=== PATIENT | female | born 1995 | race African-American/Black ===

== ENCOUNTER 2023-03-28 19:18 | Inpatient (IN) | payer MEDICAID, OTHER ==
[~2023-03-28] VITALS: Ht 153.5 cm; Wt 66.0 kg
[2023-03-28] MEDS ORDERED: METHYLPREDNISOLONE SOD SUCC 125 MG/2 ML VIAL IV STA (19:21)
[2023-03-28] MEDS ORDERED: IPRATROPIUM BROMIDE (0.02%) 0.5MG/2.5ML NEB HHN STA (19:21)
[2023-03-28] MEDS ORDERED: ALBUTEROL (0.083%) 2.5MG/3ML NEB HHN STA (19:21)
[2023-03-28 20:33] LABS: BASOPHILS % 0.6 % (0.0-2.0); CHLORIDE 104 mEq/L (98-107); EOSINOPHILS % 0.8 % (0.0-5.0); HEMATOCRIT. 30.5 % (36.0-48.0); HEMOGLOBIN. 9.8 g/dL (12.0-16.0); LYMPHOCYTES % 17.2 % (20.0-50.0); MEAN CORPUSCULAR HEMOGLOBIN 27.4 pg (28.0-32.0); MEAN CORPUSCULAR VOLUME 85.1 fL (81.0-99.0); MEAN PLATELET VOLUME 8.7 fl (7.4-10.4); MONOCYTES % 4.4 % (2.0-8.0); PLATELET 339 x1000/uL (130-400); RED BLOOD CELL COUNT 3.59 mill/uL (4.2-5.4); RED CELL DISTRIBUTION WIDTH 13.8 % (11.6-14.6)
[2023-03-28 20:41] LABS: ETHANOL BLOOD < 10 mg/dL
[2023-03-28 20:45] LABS: HCG SCREEN NEGATIVE
[2023-03-28] MEDS ORDERED: SODIUM CHLORIDE 0.9% 1,000 ML IV ONE (20:45)
[2023-03-28] MEDS ORDERED: CEFTRIAXONE 2GM/50ML (ADDEASE) 50 ML IV ONE (22:00)
[2023-03-28] MEDS ORDERED: DOXYCYCLINE 100 MG in DEXT 5% WATER 100 ML IV SCH (22:00)
[2023-03-28] MEDS ORDERED: INSULIN REGULAR 100U/100ML PMX 100 ML IV ONE ×2 (22:00→22:15)
[2023-03-28] MEDS ORDERED: CEFTRIAXONE 2 G in DEXTROSE 5% WATER 50 ML IV NR (22:15)
[2023-03-28] MEDS ORDERED: LEVOFLOXACIN 750MG PREMIX 150 ML IV ONE ×2 (22:45)
[2023-03-29] VITALS (73 sets, daily range): BP systolic 129–181; BP diastolic 15–114
[2023-03-29 01:08] LABS: CLARITY URINE CLOUDY (CLEAR); COLOR URINE YELLOW (YELLOW); KETONES URINE TRACE (NEGATIVE); LEUKOCYTE ESTERASE URINE 1+ (NEGATIVE); NITRITE URINE POSITIVE (NEGATIVE); OCCULT BLOOD URINE 2+ (NEGATIVE); PROTEIN URINE 4+ (NEGATIVE); SPECIFIC GRAVITY URINE 1.015 (1.005-1.030); UROBILINOGEN URINE 0.2 E.U./dL (0.2-1.0)
[2023-03-29 01:28] LABS: *AMPHETAMINES SCREEN URINE NEGATIVE (NEGATIVE); *BARBITURATES SCREEN URINE NEGATIVE (NEGATIVE); *BENZODIAZEPINES SCREEN URINE NEGATIVE (NEGATIVE); *COCAINE SCREEN URINE NEGATIVE (NEGATIVE); CANNABINOID URINE SCREEN NEGATIVE (NEGATIVE); METHADONE URINE SCREEN NEGATIVE (NEGATIVE); OPIATES URINE SCREEN NEGATIVE (NEGATIVE); PHENCYCLIDINE URINE SCREEN NEGATIVE (NEGATIVE)
[2023-03-29] MEDS ORDERED: INSULIN REGULAR (DRIP) 100 UNITS in SODIUM CHLORIDE 0.9% 99 ML IV PRN (02:00)
[2023-03-29] MEDS ORDERED: CEFTRIAXONE 1GM PREMIX 50 ML IV SCH (02:00)
[2023-03-29] MEDS ORDERED: DEXTROSE 50% WATER 50ML SYRINGE IV PRN ×2 (02:00)
[2023-03-29] MEDS ORDERED: HYDROCODONE/ACETAMINOPHEN 5/325MG TABLET PO PRN (02:00)
[2023-03-29] MEDS: BLOOD SUGAR DIAGNOSTIC STRIP TEST SCH ×11 (02:31→20:10)
[2023-03-29 02:37] LABS: BG BASE EXCESS -10.3 mmol/L (-2.0-2.0); BG DEOXYHEMOGLOBIN 8.8 % (0.0-5.0); BG HCO3 ACT 13.9 mmol/L (22.0-26.0); BG OXYGEN SATURATION 91.2 % (92.0-98.5); BG OXYHEMOGLOBIN 91.2 % (94.0-97.0); BG PCO2 25.9 mmHg (35.0-45.0); BG PH 7.349 (7.350-7.450); BG PO2 61.8 mmHg (75.0-100.0); BG SAMPLE SITE RIGHT RADIAL; BG TOTAL HEMOGLOBIN 10.2 g/dL (12.0-18.0); BG TOTAL RESPIRATORY RATE 28 b/min; BG VENT MODE MASK - SIMPLE
[2023-03-29] MEDS ORDERED: DEXT 5%/0.9% NACL KCL 20MEQ/L 1,000 ML IV SCH (03:30)
[2023-03-29] MEDS ORDERED: SODIUM CHL 0.9% + KCL 20MEQ/L 1,000 ML IV SCH (03:30)
[2023-03-29] MEDS ORDERED: AZITHROMYCIN 500MG/250ML 250 ML IV SCH (04:00)
[2023-03-29] MEDS ORDERED: INSULIN REGULAR 100U/100ML PMX 100 ML IV PRN (04:20)
[2023-03-29] MEDS: ONDANSETRON HCL 4MG/2ML INJ IV PRN (04:54)
[2023-03-29 05:14] LABS: HEMATOCRIT. 30.2 % (36.0-48.0); HEMOGLOBIN. 9.9 g/dL (12.0-16.0); MEAN CORPUSCULAR HEMOGLOBIN 27.8 pg (28.0-32.0); MEAN CORPUSCULAR VOLUME 85.4 fL (81.0-99.0); MEAN PLATELET VOLUME 8.7 fl (7.4-10.4); PLATELET 381 x1000/uL (130-400); RED BLOOD CELL COUNT 3.54 mill/uL (4.2-5.4); RED CELL DISTRIBUTION WIDTH 13.4 % (11.6-14.6)
[2023-03-29] MEDS: CLONIDINE 0.1MG TABLET PO PRN ×3 (05:14→16:36)
[2023-03-29 05:32] LABS: PHOSPHORUS 2.6 mg/dL (2.5-4.9)
[2023-03-29 07:11] LABS: PLATELET ESTIMATE NORMAL
[2023-03-29] MEDS: ENOXAPARIN 30MG/0.3ML SYR SUBCUT SCH (08:16)
[2023-03-29] MEDS: PANTOPRAZOLE SODIUM 40 MG/VIAL IV SCH (08:16)
[2023-03-29] MEDS: DEXT 5%/0.9% NACL 1,000 ML IV SCH (09:03)
[2023-03-29] MEDS: INSULIN GLARGINE 100 UNITS/ML SUBCUT SCH (09:03)
[2023-03-29] MEDS ORDERED: HEPARIN 1000 UNITS/ML 10ML ONE (10:30)
[2023-03-29] MEDS: MANNITOL 20% (20GM/100ML) BAG 500ML PREMIX IV NR ×2 (10:44→12:50)
[2023-03-29] MEDS: INSULIN LISPRO 100 UNITS/ML SUBCUT SCH ×5 (11:05→20:12)
[2023-03-29 11:36] LABS: PROTHROMBIN TIME 10.9 sec (9.6-11.0)
[2023-03-29 11:45] LABS: CREATINE KINASE 195 IU/L (26-192)
[2023-03-29] MEDS ORDERED: NALOXONE HCL 0.4MG/ML VIAL IV PRN (11:45)
[2023-03-29 12:54] LABS: HEPATITIS B SURFACE ANTIGEN NEGATIVE
[2023-03-29 13:56] LABS: PARTIAL THROMBOPLASTIN TIME 31.9 sec (23.4-31.0)
[2023-03-29] MEDS: CEFEPIME 1,000 MG in DEXTROSE 5% WATER 50 ML IV SCH (14:36)
[2023-03-29] MEDS ORDERED: AMLO10TA4 MT (20:04)
[2023-03-29] MEDS: AMLODIPINE 10MG TABLET PO SCH (20:12)
[2023-03-29] MEDS: METOPROLOL TARTRATE 25MG TABLET PO SCH (20:12)
[2023-03-30] VITALS (29 sets, daily range): BP systolic 110–162; BP diastolic 52–96
[2023-03-30] MEDS: DEXT 5%/0.9% NACL 1,000 ML IV SCH ×2 (00:05→17:21)
[2023-03-30] MEDS: METHYLPREDNISOLONE SOD SUCC 40 MG/ML (ACT-O-VIAL) IV SCH ×5 (00:05→23:16)
[2023-03-30 05:18] LABS: HEMATOCRIT. 24.9 % (36.0-48.0); MEAN CORPUSCULAR HEMOGLOBIN 27.3 pg (28.0-32.0); MEAN CORPUSCULAR VOLUME 84.6 fL (81.0-99.0); MEAN PLATELET VOLUME 9.1 fl (7.4-10.4); PLATELET 249 x1000/uL (130-400); RED BLOOD CELL COUNT 2.94 mill/uL (4.2-5.4); RED CELL DISTRIBUTION WIDTH 13.3 % (11.6-14.6)
[2023-03-30 05:57] LABS: FOLIC ACID (FOLATE) SERUM 5.8 ng/mL (>5.38)
[2023-03-30] MEDS ORDERED: AZITHROMYCIN 500MG in DEXTROSE 5% WATER 250ML IV SCH (06:00)
[2023-03-30] MEDS: BLOOD SUGAR DIAGNOSTIC STRIP TEST SCH ×4 (06:26→20:37)
[2023-03-30] MEDS: INSULIN LISPRO 100 UNITS/ML SUBCUT SCH ×7 (06:30→20:56)
[2023-03-30] MEDS: PANTOPRAZOLE SODIUM 40 MG/VIAL IV SCH (08:24)
[2023-03-30] MEDS: AMLODIPINE 10MG TABLET PO SCH (08:25)
[2023-03-30] MEDS: METOPROLOL TARTRATE 25MG TABLET PO SCH ×2 (08:25→20:54)
[2023-03-30] MEDS: FUROSEMIDE 40MG/4ML VIAL IVP SCH (08:25)
[2023-03-30] MEDS: ENOXAPARIN 30MG/0.3ML SYR SUBCUT SCH (08:26)
[2023-03-30 09:19] LABS: PLATELET ESTIMATE NORMAL
[2023-03-30] MEDS: INSULIN GLARGINE 100 UNITS/ML SUBCUT SCH (10:31)
[2023-03-30] MEDS ORDERED: LEVOFLOXACIN 500MG PREMIX 100 ML IV SCH (11:00)
[2023-03-30] MEDS: CEFEPIME 1,000 MG in DEXTROSE 5% WATER 50 ML IV SCH (14:33)
[2023-03-30 22:18] LABS: CREATININE URINE 24 HR 647.5 mg/24hr (800-2000)
[2023-03-30] MEDS: CLONIDINE 0.1MG TABLET PO PRN (23:30)
[2023-03-31] VITALS (26 sets, daily range): BP systolic 126–170; BP diastolic 68–96
[2023-03-31] MEDS: METHYLPREDNISOLONE SOD SUCC 40 MG/ML (ACT-O-VIAL) IV SCH (05:39)
[2023-03-31 06:26] LABS: HEMATOCRIT. 25.6 % (36.0-48.0); HEMOGLOBIN. 8.5 g/dL (12.0-16.0); MEAN CORPUSCULAR HEMOGLOBIN 28.7 pg (28.0-32.0); MEAN CORPUSCULAR VOLUME 86.4 fL (81.0-99.0); MEAN PLATELET VOLUME 9.5 fl (7.4-10.4); PLATELET 255 x1000/uL (130-400); RED BLOOD CELL COUNT 2.96 mill/uL (4.2-5.4); RED CELL DISTRIBUTION WIDTH 13.5 % (11.6-14.6)
[2023-03-31] MEDS: BLOOD SUGAR DIAGNOSTIC STRIP TEST SCH ×4 (07:49→21:24)
[2023-03-31] MEDS: INSULIN LISPRO 100 UNITS/ML SUBCUT SCH ×7 (07:52→21:31)
[2023-03-31] MEDS: FUROSEMIDE 40MG/4ML VIAL IVP SCH (08:58)
[2023-03-31] MEDS: PANTOPRAZOLE SODIUM 40 MG/VIAL IV SCH (08:58)
[2023-03-31] MEDS: METOPROLOL TARTRATE 25MG TABLET PO SCH ×2 (08:59→21:29)
[2023-03-31] MEDS: AMLODIPINE 10MG TABLET PO SCH (08:59)
[2023-03-31] MEDS: ENOXAPARIN 30MG/0.3ML SYR SUBCUT SCH (08:59)
[2023-03-31 10:09] LABS: ANTI-DNA DOUBLE STRANDED QUANT < 1 IU/mL (0-9)
[2023-03-31 10:09] LABS: RNP ANTIBODY < 0.2 AI (0.0-0.9)
[2023-03-31 10:09] LABS: ANTI-NUCLEAR ANTIBODIES DIRECT Negative (Negative)
[2023-03-31] MEDS: INSULIN GLARGINE 100 UNITS/ML SUBCUT SCH (10:33)
[2023-03-31] MEDS: CEFEPIME 1,000 MG in DEXTROSE 5% WATER 50 ML IV SCH (13:39)
[2023-03-31] MEDS: CLONIDINE 0.1MG TABLET PO PRN (13:40)
[2023-03-31 17:24] LABS: PLATELET ESTIMATE NORMAL
[2023-04-01] VITALS (7 sets, daily range): BP systolic 128–160; BP diastolic 68–90
[2023-04-01] MEDS: BLOOD SUGAR DIAGNOSTIC STRIP TEST SCH ×4 (06:17→21:04)
[2023-04-01] MEDS: INSULIN LISPRO 100 UNITS/ML SUBCUT SCH ×7 (06:17→21:11)
[2023-04-01 07:04] LABS: BASOPHILS % 0.2 % (0.0-2.0); HEMATOCRIT. 27.2 % (36.0-48.0); LYMPHOCYTES % 16.4 % (20.0-50.0); MEAN CORPUSCULAR HEMOGLOBIN 28.1 pg (28.0-32.0); MEAN CORPUSCULAR VOLUME 85.1 fL (81.0-99.0); MEAN PLATELET VOLUME 9.4 fl (7.4-10.4); MONOCYTES % 5.6 % (2.0-8.0); NEUTROPHILS % 76.8 % (40.0-76.0); PLATELET 275 x1000/uL (130-400); RED CELL DISTRIBUTION WIDTH 13.3 % (11.6-14.6)
[2023-04-01] MEDS: FUROSEMIDE 40MG/4ML VIAL IVP SCH (10:07)
[2023-04-01] MEDS: AMLODIPINE 10MG TABLET PO SCH (10:08)
[2023-04-01] MEDS: ENOXAPARIN 30MG/0.3ML SYR SUBCUT SCH (10:08)
[2023-04-01] MEDS: PANTOPRAZOLE SODIUM 40 MG/VIAL IV SCH (10:09)
[2023-04-01] MEDS: CEFEPIME 1,000 MG in DEXTROSE 5% WATER 50 ML IV SCH (14:45)
[2023-04-01 17:12] LABS: ANTI-MYELOPEROXIDASE AB < 0.2 units (0.0-0.9); ANTI-PROTEINASE 3 ABS < 0.2 units (0.0-0.9)
[2023-04-01] MEDS: METOPROLOL TARTRATE 50MG TABLET PO SCH (21:09)
[2023-04-01] MEDS: INSULIN GLARGINE 100 UNITS/ML SUBCUT SCH (21:11)
[2023-04-02] VITALS (27 sets, daily range): BP systolic 128–169; BP diastolic 73–95
[2023-04-02 05:23] LABS: BASOPHILS % 0.3 % (0.0-2.0); EOSINOPHILS % 3.3 % (0.0-5.0); HEMATOCRIT. 31.7 % (36.0-48.0); HEMOGLOBIN. 10.5 g/dL (12.0-16.0); MEAN CORPUSCULAR HEMOGLOBIN 28.4 pg (28.0-32.0); MEAN CORPUSCULAR VOLUME 86.1 fL (81.0-99.0); MEAN PLATELET VOLUME 8.7 fl (7.4-10.4); MONOCYTES % 5.9 % (2.0-8.0); NEUTROPHILS % 66.5 % (40.0-76.0); PLATELET 315 x1000/uL (130-400); RED BLOOD CELL COUNT 3.69 mill/uL (4.2-5.4); RED CELL DISTRIBUTION WIDTH 13.2 % (11.6-14.6)
[2023-04-02] MEDS: DEXTROSE 50% WATER 50ML SYRINGE IV PRN (06:03)
[2023-04-02] MEDS: INSULIN LISPRO 100 UNITS/ML SUBCUT SCH ×7 (06:14→21:00)
[2023-04-02] MEDS: BLOOD SUGAR DIAGNOSTIC STRIP TEST SCH ×4 (06:14→21:32)
[2023-04-02] MEDS: ENOXAPARIN 30MG/0.3ML SYR SUBCUT SCH (09:00)
[2023-04-02] MEDS: METOPROLOL TARTRATE 50MG TABLET PO SCH ×2 (09:00→21:29)
[2023-04-02] MEDS: AMLODIPINE 10MG TABLET PO SCH (09:00)
[2023-04-02 09:07] LABS: ALDOLASE 8.5 U/L (3.3-10.3); ANA IFA Negative (.); ANGIOTENSION CONVERTING ENZYME 26 U/L (14-82)
[2023-04-02] MEDS: FUROSEMIDE 40MG/4ML VIAL IVP SCH (09:42)
[2023-04-02] MEDS: PANTOPRAZOLE SODIUM 40 MG/VIAL IV SCH (09:42)
[2023-04-02] MEDS: INSULIN GLARGINE 100 UNITS/ML SUBCUT SCH ×2 (10:02→21:32)
[2023-04-02 13:11] LABS: ACTIN (SMOOTH MUSCLE) ANTIBODY 10 Units (0-19)
[2023-04-02] MEDS ORDERED: LIDOCAINE HCL 1% 10 MG/ML 10ML VIAL ONE (14:03)
[2023-04-02] MEDS ORDERED: FENTANYL CITRATE/PF 50MCG/ML 2ML VIAL ONE (14:13)
[2023-04-02] MEDS ORDERED: FENTANYL CITRATE/PF 50MCG/ML 2ML VIAL IV NR (14:45)
[2023-04-02] MEDS: CEFEPIME 1,000 MG in DEXTROSE 5% WATER 50 ML IV SCH (15:41)
[2023-04-02] MEDS: ONDANSETRON HCL 4MG/2ML INJ IV PRN (19:00)
[2023-04-03] VITALS: BP 154/78
[2023-04-03 04:00] VITALS: BP 162/79
[2023-04-03] MEDS ORDERED: HYDROCODONE/ACETAMINOPHEN 5/325MG TABLET PO PRN (04:45)
[2023-04-03] MEDS: BLOOD SUGAR DIAGNOSTIC STRIP TEST SCH ×4 (06:30→21:00)
[2023-04-03] MEDS: INSULIN LISPRO 100 UNITS/ML SUBCUT SCH ×6 (06:38→21:34)
[2023-04-03 07:55] LABS: BASOPHILS % 0.3 % (0.0-2.0); HEMATOCRIT. 26.4 % (36.0-48.0); HEMOGLOBIN. 8.7 g/dL (12.0-16.0); MEAN CORPUSCULAR HEMOGLOBIN 28.3 pg (28.0-32.0); MEAN CORPUSCULAR VOLUME 85.2 fL (81.0-99.0); MEAN PLATELET VOLUME 8.8 fl (7.4-10.4); MONOCYTES % 6.1 % (2.0-8.0); NEUTROPHILS % 66.6 % (40.0-76.0); PLATELET 184 x1000/uL (130-400); RED BLOOD CELL COUNT 3.09 mill/uL (4.2-5.4); RED CELL DISTRIBUTION WIDTH 12.9 % (11.6-14.6)
[2023-04-03 08:00] VITALS: BP 133/80
[2023-04-03] MEDS: ENOXAPARIN 30MG/0.3ML SYR SUBCUT SCH (09:00)
[2023-04-03] MEDS: AMLODIPINE 10MG TABLET PO SCH (09:00)
[2023-04-03] MEDS: METOPROLOL TARTRATE 50MG TABLET PO SCH ×2 (09:01→21:31)
[2023-04-03] MEDS: FUROSEMIDE 40MG/4ML VIAL IVP SCH (09:01)
[2023-04-03] MEDS: PANTOPRAZOLE SODIUM 40 MG/VIAL IV SCH (09:01)
[2023-04-03] MEDS: INSULIN GLARGINE 100 UNITS/ML SUBCUT SCH ×2 (09:04→21:33)
[2023-04-03 12:00] VITALS: BP 130/75
[2023-04-03] MEDS: CEFEPIME 1,000 MG in DEXTROSE 5% WATER 50 ML IV SCH (13:27)
[2023-04-03] MEDS: DEXTROSE 50% WATER 50ML SYRINGE IV PRN (13:31)
[2023-04-03 16:00] VITALS: BP 147/87
[2023-04-03 20:00] VITALS: BP 143/86
[2023-04-04] VITALS (13 sets, daily range): BP systolic 125–153; BP diastolic 73–93
[2023-04-04 06:32] LABS: BASOPHILS % 0.4 % (0.0-2.0); EOSINOPHILS % 2.6 % (0.0-5.0); HEMOGLOBIN. 9.2 g/dL (12.0-16.0); LYMPHOCYTES % 22.3 % (20.0-50.0); MEAN CORPUSCULAR HEMOGLOBIN 28.1 pg (28.0-32.0); MEAN CORPUSCULAR VOLUME 85.1 fL (81.0-99.0); MEAN PLATELET VOLUME 9.5 fl (7.4-10.4); MONOCYTES % 5.2 % (2.0-8.0); NEUTROPHILS % 69.5 % (40.0-76.0); PLATELET 208 x1000/uL (130-400); RED BLOOD CELL COUNT 3.29 mill/uL (4.2-5.4); RED CELL DISTRIBUTION WIDTH 12.8 % (11.6-14.6)
[2023-04-04] MEDS: INSULIN LISPRO 100 UNITS/ML SUBCUT SCH ×2 (06:45→12:49)
[2023-04-04] MEDS: PANTOPRAZOLE SODIUM 40 MG/VIAL IV SCH (08:19)
[2023-04-04] MEDS: FUROSEMIDE 40MG/4ML VIAL IVP SCH (08:19)
[2023-04-04] MEDS: ENOXAPARIN 30MG/0.3ML SYR SUBCUT SCH (08:20)
[2023-04-04] MEDS: AMLODIPINE 10MG TABLET PO SCH (08:20)
[2023-04-04] MEDS: METOPROLOL TARTRATE 50MG TABLET PO SCH (08:20)
[2023-04-04] MEDS: INSULIN GLARGINE 100 UNITS/ML SUBCUT SCH (10:00)
[2023-04-04] MEDS ORDERED: INSLIS SUBCUT (11:54)
[2023-04-04] MEDS ORDERED: FURO40TA5 MT (11:54)
[2023-04-04] MEDS ORDERED: METO-539 PO (11:54)
[2023-04-04] MEDS ORDERED: PANT40TA51 MT (11:54)
[2023-04-04] MEDS ORDERED: LANTUSUD SUBCUT (11:54)
[2023-04-04] MEDS ORDERED: AMLO10TA80 PO (11:54)
[2023-04-04] MEDS: BLOOD SUGAR DIAGNOSTIC STRIP TEST SCH (12:13)
[2023-04-09 14:09] LABS: ATYPICAL P-ANCA <1:20 titer (Neg:<1:20); CYTOPLASMIC C-ANCA <1:20 titer (Neg:<1:20); PERINUCLEAR P-ANCA <1:20 titer (Neg:<1:20)
== END 2023-04-04 16:59 | disposition home or self-care (01) | DRG 720 ==
LOC: EDBD 19:18 → ER 19:18 → MICUSO 22:23 → 5EST 03-30 10:33 → 8WST 03-31 13:20
PROVIDERS: ADMIT Internal Medicine; ATTEND Internal Medicine
PROC: 02HV33Z Insertion of Infusion Device into Superior Vena Cava, Percutaneous Approach (ICD-10-PCS; principal; 2023-03-29)
PROC: 5A1D70Z Performance of Urinary Filtration, Intermittent, Less than 6 Hours Per Day (ICD-10-PCS; 2023-03-29)
PROC: 5A1D70Z Performance of Urinary Filtration, Intermittent, Less than 6 Hours Per Day (ICD-10-PCS; 2023-03-30)
PROC: 5A1D70Z Performance of Urinary Filtration, Intermittent, Less than 6 Hours Per Day (ICD-10-PCS; 2023-04-02)
PROC: 02PYX3Z Removal of Infusion Device from Great Vessel, External Approach (ICD-10-PCS; 2023-04-02)
PROC: 02HV33Z Insertion of Infusion Device into Superior Vena Cava, Percutaneous Approach (ICD-10-PCS; 2023-04-02)
PROC: B5181ZA Fluoroscopy of Superior Vena Cava using Low Osmolar Contrast, Guidance (ICD-10-PCS; 2023-04-02)
PROC: 5A1D70Z Performance of Urinary Filtration, Intermittent, Less than 6 Hours Per Day (ICD-10-PCS; 2023-04-04)
DX: A41.9 Sepsis, unspecified organism (principal); J96.01 Acute respiratory failure with hypoxia; I50.43 Acute on chronic combined systolic (congestive) and diastolic (congestive) heart failure; N17.9 Acute kidney failure, unspecified; E10.10 Type 1 diabetes mellitus with ketoacidosis without coma; J18.9 Pneumonia, unspecified organism; D63.8 Anemia in other chronic diseases classified elsewhere; E88.09 Other disorders of plasma-protein metabolism, not elsewhere classified; N18.6 End stage renal disease; E10.22 Type 1 diabetes mellitus with diabetic chronic kidney disease; I36.1 Nonrheumatic tricuspid (valve) insufficiency; Z20.822 Contact with and (suspected) exposure to COVID-19; N18.9 Chronic kidney disease, unspecified; I13.2 Hypertensive heart and chronic kidney disease with heart failure and with stage 5 chronic kidney disease, or end stage renal disease; N39.0 Urinary tract infection, site not specified; R94.31 Abnormal electrocardiogram [ECG] [EKG]; E87.8 Other disorders of electrolyte and fluid balance, not elsewhere classified; Z79.4 Long term (current) use of insulin; Z88.0 Allergy status to penicillin; Z99.2 Dependence on renal dialysis
CPT/HCPCS: 36415; 36556; 36558; 36589; 36600; 71045; 74176; 76770; 76937; 77001; 80048; 80053; 80061; 80305; 80320; 81003; 82085; 82164; 82375; 82550; 82570; 82607; 82728; 82746; 82805; 82962; 83036; 83516; 83520; 83540; 83550; 83605; 83735; 83880; 84100; 84145; 84156; 84484; 84703; 85025; 85044; 85651; 86038; 86060; 86160; 86225; 86235; 86256; 86705; 86709; 86803; 86880; 87070; 87340; 87389; 87426; 87804; 90935; 93005; 93306; 94640; 94660; 99152; 99153; 99291; C1750; C1752; C1769; C9113; J0456; J0692; J0696; J1642; J1644; J1650; J1815; J1940; J1956; J2405; J2920; J2930; J3010; J3480; J3490; J7042; J7060; A4315; G0480; G0500

== ENCOUNTER 2024-09-29 10:14 | Inpatient (IN) | payer MEDICAID ==
[~2024-09-29] VITALS: Ht 162.6 cm; Wt 54.1 kg
[~2024-09-29 10:14] MED LIST: AMLO10TA80 PO; FURO40TA5 MT; INSLIS SUBCUT; LANTUSUD SUBCUT; METO-539 PO; PANT40TA51 MT
[2024-09-29] MEDS: SODIUM CHLORIDE 0.9% 1,000 ML IV ONE (11:05)
[2024-09-29 11:21] LABS: BASOPHILS % 0.6 % (0.0-2.0); HEMATOCRIT. 26.7 % (36.0-48.0); HEMOGLOBIN. 8.7 g/dL (12.0-16.0); LYMPHOCYTES % 9.6 % (20.0-50.0); MEAN CORPUSCULAR HEMOGLOBIN 30.9 pg (28.0-32.0); MEAN CORPUSCULAR HGB CONC 32.6 g/dL (31.0-37.0); MEAN CORPUSCULAR VOLUME 94.6 fL (81.0-99.0); MEAN PLATELET VOLUME 9.5 fl (7.4-10.4); MONOCYTES % 4.9 % (2.0-8.0); NEUTROPHILS % 83.9 % (40.0-76.0); PLATELET 201 x1000/uL (130-400); RED BLOOD CELL COUNT 2.83 mill/uL (4.2-5.4); RED CELL DISTRIBUTION WIDTH 14.2 % (11.6-14.6); WHITE BLOOD COUNT 7.5 x1000/uL (4.5-11.0)
[2024-09-29 11:29] LABS: POTASSIUM 3.6 mEq/L (3.5-5.1)
[2024-09-29 11:31] LABS: CALCIUM 8.8 mg/dL (8.7-10.4); PROTHROMBIN TIME 11.2 sec (9.6-11.0)
[2024-09-29 12:35] LABS: CREATININE 7.5 mg/dL (0.6-1.0)
[2024-09-29] MEDS: INSULIN REGULAR (HUMULIN R) 1000UNITS/10ML VIAL IV ONE (13:44)
[2024-09-29 16:14] LABS: BG BASE EXCESS -5.3 mmol/L (-2.0-3.0); BG DEOXYHEMOGLOBIN 10.9 % (0.0-5.0); BG FRACTION INSPIRED OXYGEN 24; BG HCO3 ACT 18.6 mmol/L (21.0-28.0); BG METHEMOGLOBIN 0.3 % (0.5-1.5); BG OXYGEN SATURATION 88.8 % (94.0-98.0); BG OXYHEMOGLOBIN 86.8 % (94.0-98.0); BG PCO2 30.2 mmHg (32.0-45.0); BG PH 7.407 (7.350-7.450); BG PO2 55.3 mmHg (83.0-108.0); BG SAMPLE SITE RIGHT RADIAL; BG TOTAL HEMOGLOBIN 8.6 g/dL (12.0-16.0); BG VENT MODE NASAL CANNULA
[2024-09-29] MEDS ORDERED: IPRATROPIUM/ALBUTEROL 0.5-3(2.5)MG/3ML NEB HHN PRN (16:15)
[2024-09-29] MEDS: DEXT 5%/0.9% NACL 1,000 ML IV SCH (16:30)
[2024-09-29] MEDS ORDERED: SODIUM PHOSPHATE 15 MMOL in SODIUM CHLORIDE 0.9% 245 ML IV PRN (16:30)
[2024-09-29] MEDS ORDERED: BLOOD SUGAR DIAGNOSTIC STRIP TEST PRN (16:30)
[2024-09-29] MEDS ORDERED: INSULIN REGULAR (DRIP) 100 UNITS in SODIUM CHLORIDE 0.9% 99 ML IV SCH (16:30)
[2024-09-29] MEDS ORDERED: MAGNESIUM 2 G PREMIX 50 ML IV PRN (16:30)
[2024-09-29 16:34] LABS: BETA HYDROXYBUTYRATE 5.6 mMol/L (0.0-0.3); PHOSPHORUS 3.3 mg/dL (2.5-4.9)
[2024-09-29] MEDS: BLOOD SUGAR DIAGNOSTIC STRIP TEST SCH (17:30)
[2024-09-29] MEDS: SODIUM CHLORIDE 0.9% 1,000 ML IV SCH (17:30)
[2024-09-29 17:46] LABS: CHLORIDE 96 mEq/L (98-107); POTASSIUM 4.1 mEq/L (3.5-5.1); SODIUM 133 mEq/L (136-145)
[2024-09-29 17:47] LABS: CALCIUM 8.6 mg/dL (8.7-10.4); CARBON DIOXIDE 19 mEq/L (21-32)
[2024-09-29 17:52] LABS: UREA NITROGEN BLOOD 37 mg/dL (9-23)
[2024-09-29] MEDS: CEFEPIME 1GM/50ML 50 ML IV SCH (17:52)
[2024-09-29 17:54] LABS: LDL CHOLESTEROL 63 mg/dL (5-100); PHOSPHORUS 3.6 mg/dL (2.5-4.9); TRIGLYCERIDE 176 mg/dL (0-150)
[2024-09-29 17:55] LABS: ALANINE AMINOTRANSFERASE 25 IU/L (10-49); ALBUMIN 3.9 g/dL (3.2-4.8); CHOLESTEROL 145 mg/dL (<200)
[2024-09-29 17:56] LABS: ASPARTATE AMINOTRANSFERASE 23 IU/L (<34); BILIRUBIN DIRECT 0.1 mg/dL (<=3.0); BILIRUBIN TOTAL 0.3 mg/dL (0.1-1.0); HDL CHOLESTEROL 52 mg/dL (>65); PROTEIN TOTAL 7.1 g/dL (6.0-8.3)
[2024-09-29 17:58] LABS: T4 FREE 1.32 ng/dL (0.89-1.76); THYROID STIMULATING HORMONE 2.41 uIU/mL (0.55-4.78)
[2024-09-29 17:59] LABS: CREATININE 8.4 mg/dL (0.6-1.0); GLUCOSE 483 mg/dL (70-105)
[2024-09-29] MEDS: INSULIN REGULAR 100U/100ML PMX 100 ML IV SCH (18:29)
[2024-09-29] MEDS: KCL 20MEQ/100ML PREMIX 100 ML IV PRN (18:40)
[2024-09-29] MEDS: VANCOMYCIN 1.25GM/250ML 250 ML IV NR (18:47)
[2024-09-29] MEDS: PANTOPRAZOLE SODIUM 40 MG/VIAL IV SCH (18:51)
[2024-09-29] MEDS: HYDRALAZINE 20MG/ML VIAL IV PRN (21:10)
[2024-09-29] MEDS ORDERED: PIPERACILLIN/TAZO 3.375G/50ML 50 ML IV SCH (22:00)
[2024-09-30] VITALS (22 sets, daily range): BP systolic 132–229; BP diastolic 83–118; PULSE 86–105; RESP 16–34; TEMP 36.55848–37.808; O2SAT 99–100
[2024-09-30 00:06] LABS: CREATINE KINASE MB FRACTION < 0.5 ng/mL (0.5-3.6)
[2024-09-30 00:07] LABS: CREATINE KINASE 66 IU/L (34-145)
[2024-09-30 00:09] LABS: TROPONIN I HIGH SENSITIVITY 82 ng/L (3.0-34)
[2024-09-30 02:18] LABS: CHLORIDE 100 mEq/L (98-107); POTASSIUM 3.2 mEq/L (3.5-5.1); SODIUM 137 mEq/L (136-145)
[2024-09-30 02:19] LABS: CARBON DIOXIDE 26 mEq/L (21-32)
[2024-09-30 02:26] LABS: PHOSPHORUS 2.1 mg/dL (2.5-4.9)
[2024-09-30] MEDS: DEXTROSE 50% WATER 50ML SYRINGE IV PRN (03:07)
[2024-09-30] MEDS: POTASSIUM CHLORIDE 40 MEQ in SODIUM CHLORIDE 0.9% 230 ML IV PRN (03:19)
[2024-09-30 06:24] LABS: CHLORIDE 102 mEq/L (98-107); EOSINOPHILS % 3.8 % (0.0-5.0); HEMATOCRIT. 31.6 % (36.0-48.0); HEMOGLOBIN. 10.5 g/dL (12.0-16.0); LYMPHOCYTES % 24.4 % (20.0-50.0); MEAN CORPUSCULAR HEMOGLOBIN 31.2 pg (28.0-32.0); MEAN CORPUSCULAR HGB CONC 33.2 g/dL (31.0-37.0); MEAN CORPUSCULAR VOLUME 94.1 fL (81.0-99.0); MEAN PLATELET VOLUME 9.4 fl (7.4-10.4); MONOCYTES % 7.8 % (2.0-8.0); PLATELET 266 x1000/uL (130-400); POTASSIUM 4.5 mEq/L (3.5-5.1); RED BLOOD CELL COUNT 3.36 mill/uL (4.2-5.4); RED CELL DISTRIBUTION WIDTH 13.8 % (11.6-14.6); SODIUM 137 mEq/L (136-145); WHITE BLOOD COUNT 8.6 x1000/uL (4.5-11.0)
[2024-09-30 06:25] LABS: CARBON DIOXIDE 24 mEq/L (21-32)
[2024-09-30 06:31] LABS: CHLORIDE 101 mEq/L (98-107); POTASSIUM 4.4 mEq/L (3.5-5.1); SODIUM 137 mEq/L (136-145)
[2024-09-30 06:32] LABS: CARBON DIOXIDE 24 mEq/L (21-32); PHOSPHORUS 2.7 mg/dL (2.5-4.9)
[2024-09-30 06:37] LABS: GLUCOSE 119 mg/dL (70-105)
[2024-09-30 06:38] LABS: CREATINE KINASE MB FRACTION < 0.5 ng/mL (0.5-3.6); UREA NITROGEN BLOOD 40 mg/dL (9-23)
[2024-09-30 06:40] LABS: CREATINE KINASE 70 IU/L (34-145)
[2024-09-30 07:02] LABS: CREATININE 9.4 mg/dL (0.6-1.0)
[2024-09-30 07:04] LABS: TROPONIN I HIGH SENSITIVITY 100 ng/L (3.0-34)
[2024-09-30] MEDS: INSULIN LISPRO 100 UNITS/ML SUBCUT SCH ×2 (08:33→12:28)
[2024-09-30] MEDS ORDERED: PIPERACILLIN/TAZO 3.375G/50ML 50 ML IV SCH (09:00)
[2024-09-30] MEDS: PROPOFOL 10MG/ML 100ML 100 ML IV SCH (09:26)
[2024-09-30 09:37] LABS: HEPATITIS B SURFACE ANTIGEN NEGATIVE (Negative)
[2024-09-30] MEDS: BLOOD SUGAR DIAGNOSTIC STRIP TEST SCH (09:46)
[2024-09-30 09:58] LABS: HEPATITIS A AB IGM NEGATIVE (Negative); HEPATITIS B CORE AB IGM NEGATIVE (Negative)
[2024-09-30 09:59] LABS: HEPATITIS C AB NON REACTIVE (Neg) (Negative)
[2024-09-30 10:13] LABS: BG BASE EXCESS -6.8 mmol/L (-2.0-3.0); BG CARBOXYHEMOGLOBIN 0.3 % (0.5-1.5); BG DEOXYHEMOGLOBIN 1.2 % (0.0-5.0); BG FRACTION INSPIRED OXYGEN 100; BG HCO3 ACT 20.3 mmol/L (21.0-28.0); BG OXYGEN SATURATION 98.8 % (94.0-98.0); BG OXYHEMOGLOBIN 98.5 % (94.0-98.0); BG PCO2 46.9 mmHg (32.0-45.0); BG PH 7.254 (7.350-7.450); BG SAMPLE SITE RIGHT RADIAL; BG TOTAL HEMOGLOBIN 11.7 g/dL (12.0-16.0); BG VENT MODE VENT - AC
[2024-09-30] MEDS: INSULIN GLARGINE 100 UNITS/ML SUBCUT SCH (10:41)
[2024-09-30] MEDS: NICARDIPINE 40MG/200ML PREMIX 200 ML IV PRN (11:04)
[2024-09-30] MEDS ORDERED: MIDAZOLAM 100MG/100ML PMX 100 ML IV PRN (12:00)
[2024-09-30] MEDS: MIDAZOLAM HCL 2 MG/2 ML VIAL IV NR (12:15)
[2024-09-30] MEDS: MIDAZOLAM 100MG/100ML PMX 100 ML IV PRN (12:22)
[2024-09-30] MEDS: IPRATROPIUM/ALBUTEROL 0.5-3(2.5)MG/3ML NEB HHN SCH (13:52)
[2024-09-30] MEDS ORDERED: FENTANYL 2500MCG/250ML PMX 250 ML IV ONE (16:15)
[2024-09-30] MEDS: LORAZEPAM 2MG/ML INJ IV NR (16:23)
[2024-09-30] MEDS: FENTANYL CITRATE 2,500 MCG in SODIUM CHLORIDE 0.9% 200 ML IV PRN (20:29)
[2024-09-30 23:12] LABS: BG BASE EXCESS -2.3 mmol/L (-2.0-3.0); BG CARBOXYHEMOGLOBIN 0.3 % (0.5-1.5); BG DEOXYHEMOGLOBIN 1.8 % (0.0-5.0); BG FRACTION INSPIRED OXYGEN 40; BG HCO3 ACT 21.2 mmol/L (21.0-28.0); BG METHEMOGLOBIN 0.3 % (0.5-1.5); BG OXYGEN SATURATION 98.2 % (94.0-98.0); BG OXYHEMOGLOBIN 97.6 % (94.0-98.0); BG PCO2 32.1 mmHg (32.0-45.0); BG PH 7.438 (7.350-7.450); BG PO2 104.2 mmHg (83.0-108.0); BG SAMPLE SITE RIGHT RADIAL; BG TOTAL HEMOGLOBIN 10.9 g/dL (12.0-16.0); BG VENT MODE VENT - AC
[2024-10-01] VITALS (84 sets, daily range): BP systolic 107–201; BP diastolic 68–103; PULSE 65–101; RESP 0–25; TEMP 35.5584–38.16972; O2SAT 97–100
[2024-10-01] MEDS ORDERED: CARV6.2548 PO (03:55)
[2024-10-01] MEDS ORDERED: CALC667C PO (03:55)
[2024-10-01] MEDS ORDERED: NIFE90TA69 PO (03:55)
[2024-10-01] MEDS ORDERED: ATOR20TA65 PO (03:55)
[2024-10-01] MEDS: PROPOFOL 10MG/ML 100ML 100 ML IV PRN (06:24)
[2024-10-01 08:19] LABS: CARBON DIOXIDE 22 mEq/L (21-32); CHLORIDE 102 mEq/L (98-107); POTASSIUM 4.2 mEq/L (3.5-5.1); SODIUM 138 mEq/L (136-145)
[2024-10-01 08:20] LABS: CALCIUM 8.8 mg/dL (8.7-10.4)
[2024-10-01 08:25] LABS: GLUCOSE 201 mg/dL (70-105); UREA NITROGEN BLOOD 48 mg/dL (9-23)
[2024-10-01 08:27] LABS: PHOSPHORUS 3.9 mg/dL (2.5-4.9)
[2024-10-01 08:30] LABS: HEMOGLOBIN 8.5 g/dL (12.0-16.0); MEAN CORPUSCULAR HGB CONC 32.6 g/dL (31.0-37.0); PLATELET 178 x1000/uL (130-400); RED BLOOD CELL COUNT 2.74 mill/uL (4.2-5.4); RED CELL DISTRIBUTION WIDTH 14.4 % (11.6-14.6); WHITE BLOOD COUNT 11.3 x1000/uL (4.5-11.0)
[2024-10-01 08:45] LABS: CREATININE 11.4 mg/dL (0.6-1.0)
[2024-10-01 10:11] LABS: BG BASE EXCESS -4.4 mmol/L (-2.0-3.0); BG CARBOXYHEMOGLOBIN 0.3 % (0.5-1.5); BG DEOXYHEMOGLOBIN 0.9 % (0.0-5.0); BG FRACTION INSPIRED OXYGEN 40; BG METHEMOGLOBIN 0.3 % (0.5-1.5); BG OXYGEN SATURATION 99.1 % (94.0-98.0); BG OXYHEMOGLOBIN 98.5 % (94.0-98.0); BG PCO2 28.7 mmHg (32.0-45.0); BG PH 7.438 (7.350-7.450); BG PO2 197.4 mmHg (83.0-108.0); BG SAMPLE SITE RIGHT RADIAL; BG TOTAL HEMOGLOBIN 8.9 g/dL (12.0-16.0); BG VENT MODE VENT - AC
[2024-10-01] MEDS: SEVELAMER CARBONATE 800 MG TABLET PO SCH (10:21)
[2024-10-01] MEDS: EPOETIN ALFA-EPBX 4,000 UNIT/ML VIAL SUBCUT SCH (21:03)
[2024-10-02] VITALS (81 sets, daily range): BP systolic 127–196; BP diastolic 72–95; PULSE 83–112; RESP 8–28; TEMP 36.83628–37.72524; O2SAT 97–100
[2024-10-02 06:19] LABS: HEMATOCRIT 27.2 % (36.0-48.0); HEMOGLOBIN 9.2 g/dL (12.0-16.0); MEAN CORPUSCULAR HEMOGLOBIN 31.9 pg (28.0-32.0); MEAN CORPUSCULAR HGB CONC 33.7 g/dL (31.0-37.0); MEAN CORPUSCULAR VOLUME 94.7 fL (81.0-99.0); PLATELET 203 x1000/uL (130-400); RED BLOOD CELL COUNT 2.87 mill/uL (4.2-5.4); RED CELL DISTRIBUTION WIDTH 14.3 % (11.6-14.6); WHITE BLOOD COUNT 12.5 x1000/uL (4.5-11.0)
[2024-10-02 07:02] LABS: CALCIUM 8.8 mg/dL (8.7-10.4); CARBON DIOXIDE 22 mEq/L (21-32); CHLORIDE 102 mEq/L (98-107); SODIUM 137 mEq/L (136-145)
[2024-10-02 07:07] LABS: GLUCOSE 82 mg/dL (70-105)
[2024-10-02 07:08] LABS: TRIGLYCERIDE 386 mg/dL (0-150); UREA NITROGEN BLOOD 55 mg/dL (9-23)
[2024-10-02 07:09] LABS: PHOSPHORUS 5.3 mg/dL (2.5-4.9)
[2024-10-02] MEDS: INSULIN LISPRO 100 UNITS/ML SUBCUT SCH (08:20)
[2024-10-02] MEDS: PROPOFOL 10MG/ML 100ML 100 ML IV PRN (08:54)
[2024-10-02 09:02] LABS: BG BASE EXCESS -4.4 mmol/L (-2.0-3.0); BG CARBOXYHEMOGLOBIN 0.3 % (0.5-1.5); BG DEOXYHEMOGLOBIN 2.2 % (0.0-5.0); BG FRACTION INSPIRED OXYGEN 30; BG HCO3 ACT 20.5 mmol/L (21.0-28.0); BG OXYGEN SATURATION 97.8 % (94.0-98.0); BG OXYHEMOGLOBIN 97.5 % (94.0-98.0); BG PCO2 37.2 mmHg (32.0-45.0); BG PO2 105.5 mmHg (83.0-108.0); BG SAMPLE SITE RIGHT RADIAL; BG TOTAL HEMOGLOBIN 10.2 g/dL (12.0-16.0); BG VENT MODE VENT - AC
[2024-10-02 09:02] LABS: CREATININE 13.5 mg/dL (0.6-1.0)
[2024-10-02 12:55] LABS: BG BASE EXCESS -4.2 mmol/L (-2.0-3.0); BG CARBOXYHEMOGLOBIN 0.3 % (0.5-1.5); BG DEOXYHEMOGLOBIN 2.1 % (0.0-5.0); BG FRACTION INSPIRED OXYGEN 30; BG METHEMOGLOBIN 0.1 % (0.5-1.5); BG OXYGEN SATURATION 97.9 % (94.0-98.0); BG OXYHEMOGLOBIN 97.5 % (94.0-98.0); BG PCO2 33.3 mmHg (32.0-45.0); BG PH 7.396 (7.350-7.450); BG PO2 102.5 mmHg (83.0-108.0); BG SAMPLE SITE RIGHT RADIAL; BG TOTAL HEMOGLOBIN 10.3 g/dL (12.0-16.0); BG VENT MODE VENT - CPAP
[2024-10-03] VITALS (82 sets, daily range): BP systolic 126–226; BP diastolic 61–100; PULSE 85–123; RESP 0–35; TEMP 36.55848–37.503; O2SAT 97–100
[2024-10-03 07:08] LABS: CALCIUM 8.3 mg/dL (8.7-10.4); CARBON DIOXIDE 19 mEq/L (21-32); CHLORIDE 101 mEq/L (98-107); POTASSIUM 4.9 mEq/L (3.5-5.1); SODIUM 137 mEq/L (136-145)
[2024-10-03 07:13] LABS: GLUCOSE 255 mg/dL (70-105); TRIGLYCERIDE 224 mg/dL (0-150)
[2024-10-03 07:14] LABS: UREA NITROGEN BLOOD 65 mg/dL (9-23)
[2024-10-03 07:16] LABS: PHOSPHORUS 6.9 mg/dL (2.5-4.9)
[2024-10-03 07:28] LABS: HEMATOCRIT 24.5 % (36.0-48.0); MEAN CORPUSCULAR HEMOGLOBIN 31.2 pg (28.0-32.0); MEAN CORPUSCULAR HGB CONC 32.6 g/dL (31.0-37.0); MEAN CORPUSCULAR VOLUME 95.8 fL (81.0-99.0); PLATELET 179 x1000/uL (130-400); RED BLOOD CELL COUNT 2.56 mill/uL (4.2-5.4); RED CELL DISTRIBUTION WIDTH 14.3 % (11.6-14.6); WHITE BLOOD COUNT 7.8 x1000/uL (4.5-11.0)
[2024-10-03 07:33] LABS: CREATININE 15.6 mg/dL (0.6-1.0)
[2024-10-03 08:16] LABS: BG BASE EXCESS -7.5 mmol/L (-2.0-3.0); BG CARBOXYHEMOGLOBIN 0.3 % (0.5-1.5); BG DEOXYHEMOGLOBIN 1.3 % (0.0-5.0); BG FRACTION INSPIRED OXYGEN 30; BG HCO3 ACT 17.4 mmol/L (21.0-28.0); BG OXYGEN SATURATION 98.7 % (94.0-98.0); BG OXYHEMOGLOBIN 98.4 % (94.0-98.0); BG PCO2 33.2 mmHg (32.0-45.0); BG PH 7.338 (7.350-7.450); BG SAMPLE SITE RIGHT RADIAL; BG TOTAL HEMOGLOBIN 10.2 g/dL (12.0-16.0); BG VENT MODE VENT - AC
[2024-10-03] MEDS: NICARDIPINE 40MG/200ML PREMIX 200 ML IV PRN (12:37)
[2024-10-03] MEDS ORDERED: DEXTROSE 50% WATER 50ML SYRINGE IV PRN (16:00)
[2024-10-03] MEDS ORDERED: BLOOD SUGAR DIAGNOSTIC STRIP TEST SCH (17:50)
[2024-10-03] MEDS ORDERED: INSULIN LISPRO 100 UNITS/ML SUBCUT SCH (18:20)
[2024-10-03] MEDS: INSULIN GLARGINE 100 UNITS/ML SUBCUT SCH (21:15)
[2024-10-03] MEDS: METOCLOPRAMIDE HCL 10MG/2ML VIAL IV SCH (23:26)
[2024-10-04] VITALS (108 sets, daily range): BP systolic 122–166; BP diastolic 50–83; PULSE 104–122; RESP 11–36; TEMP 36.89184–37.61412; O2SAT 99–100
[2024-10-04 06:15] LABS: CHLORIDE 98 mEq/L (98-107); POTASSIUM 4.7 mEq/L (3.5-5.1); SODIUM 135 mEq/L (136-145)
[2024-10-04 06:16] LABS: CARBON DIOXIDE 17 mEq/L (21-32)
[2024-10-04 06:21] LABS: GLUCOSE 314 mg/dL (70-105); UREA NITROGEN BLOOD 54 mg/dL (9-23)
[2024-10-04 06:23] LABS: PHOSPHORUS 5.8 mg/dL (2.5-4.9)
[2024-10-04 06:24] LABS: HEMATOCRIT 24.8 % (36.0-48.0); HEMOGLOBIN 8.1 g/dL (12.0-16.0); MEAN CORPUSCULAR HEMOGLOBIN 31.3 pg (28.0-32.0); MEAN CORPUSCULAR HGB CONC 32.5 g/dL (31.0-37.0); MEAN CORPUSCULAR VOLUME 96.2 fL (81.0-99.0); PLATELET 243 x1000/uL (130-400); RED BLOOD CELL COUNT 2.58 mill/uL (4.2-5.4); RED CELL DISTRIBUTION WIDTH 14.6 % (11.6-14.6); WHITE BLOOD COUNT 10.5 x1000/uL (4.5-11.0)
[2024-10-04 06:44] LABS: CREATININE 12.8 mg/dL (0.6-1.0)
[2024-10-04] MEDS ORDERED: QUETIAPINE FUMARATE 25MG TABLET PO SCH (09:00)
[2024-10-04 12:46] LABS: HCG SCREEN NEGATIVE
[2024-10-04] MEDS: INSULIN LISPRO 100 UNITS/ML SUBCUT SCH (13:20)
[2024-10-04 14:28] LABS: BG CARBOXYHEMOGLOBIN 0.3 % (0.5-1.5); BG DEOXYHEMOGLOBIN 0.9 % (0.0-5.0); BG FRACTION INSPIRED OXYGEN 40; BG HCO3 ACT 22.6 mmol/L (21.0-28.0); BG METHEMOGLOBIN 0.2 % (0.5-1.5); BG OXYGEN SATURATION 99.1 % (94.0-98.0); BG OXYHEMOGLOBIN 98.6 % (94.0-98.0); BG PCO2 37.5 mmHg (32.0-45.0); BG PH 7.398 (7.350-7.450); BG PO2 148.1 mmHg (83.0-108.0); BG SAMPLE SITE RIGHT RADIAL; BG TOTAL HEMOGLOBIN 8.6 g/dL (12.0-16.0); BG VENT MODE VENT - CPAP
[2024-10-04] MEDS: INSULIN GLARGINE 100 UNITS/ML SUBCUT SCH (21:26)
[2024-10-05] VITALS (102 sets, daily range): BP systolic 124–167; BP diastolic 62–102; PULSE 101–120; RESP 13–47; TEMP 36.78072–38.11416; O2SAT 84–100
[2024-10-05] MEDS: QUETIAPINE FUMARATE 25MG TABLET PO PRN (00:10)
[2024-10-05 06:00] LABS: INR 0.9; PROTHROMBIN TIME 10.3 sec (9.6-11.0)
[2024-10-05 06:13] LABS: BASOPHILS % 0.6 % (0.0-2.0); EOSINOPHILS % 1.3 % (0.0-5.0); HEMOGLOBIN 7.3 g/dL (12.0-16.0); HEMOGLOBIN. 7.3 g/dL (12.0-16.0); LYMPHOCYTES % 15.6 % (20.0-50.0); MEAN CORPUSCULAR HGB CONC 33.4 g/dL (31.0-37.0); MEAN CORPUSCULAR VOLUME 95.8 fL (81.0-99.0); MEAN PLATELET VOLUME 9.1 fl (7.4-10.4); MONOCYTES % 8.2 % (2.0-8.0); NEUTROPHILS % 74.3 % (40.0-76.0); PLATELET 226 x1000/uL (130-400); RED BLOOD CELL COUNT 2.29 mill/uL (4.2-5.4); RED CELL DISTRIBUTION WIDTH 14.3 % (11.6-14.6)
[2024-10-05 06:29] LABS: BG BASE EXCESS -4.9 mmol/L (-2.0-3.0); BG CARBOXYHEMOGLOBIN 0.1 % (0.5-1.5); BG FRACTION INSPIRED OXYGEN 40; BG HCO3 ACT 19.7 mmol/L (21.0-28.0); BG METHEMOGLOBIN 0.2 % (0.5-1.5); BG OXYHEMOGLOBIN 94.7 % (94.0-98.0); BG PCO2 34.1 mmHg (32.0-45.0); BG PH 7.379 (7.350-7.450); BG PO2 79.2 mmHg (83.0-108.0); BG SAMPLE SITE RIGHT RADIAL; BG VENT MODE COOL AEROSOL
[2024-10-05 06:31] LABS: CARBON DIOXIDE 21 mEq/L (21-32); CHLORIDE 102 mEq/L (98-107); POTASSIUM 4.6 mEq/L (3.5-5.1); SODIUM 138 mEq/L (136-145)
[2024-10-05 06:32] LABS: CALCIUM 9.4 mg/dL (8.7-10.4)
[2024-10-05 06:36] LABS: GLUCOSE 226 mg/dL (70-105)
[2024-10-05 06:37] LABS: TRIGLYCERIDE 157 mg/dL (0-150); UREA NITROGEN BLOOD 63 mg/dL (9-23)
[2024-10-05 06:38] LABS: CHOLESTEROL 172 mg/dL (<200); LDL CHOLESTEROL 89 mg/dL (5-100)
[2024-10-05 06:39] LABS: HDL CHOLESTEROL 58 mg/dL (>65); PHOSPHORUS 6.5 mg/dL (2.5-4.9)
[2024-10-05 07:18] LABS: CREATININE 15.4 mg/dL (0.6-1.0)
[2024-10-05] MEDS: INSULIN GLARGINE 100 UNITS/ML SUBCUT SCH (10:06)
[2024-10-05] MEDS: ACETAMINOPHEN 325MG TABLET PO PRN (10:12)
[2024-10-05] MEDS: IPRATROPIUM/ALBUTEROL 0.5-3(2.5)MG/3ML NEB HHN SCH (11:17)
[2024-10-05] MEDS: AMLODIPINE 10MG TABLET PO SCH (13:02)
[2024-10-05] MEDS: DEXTROSE 50% WATER 50ML SYRINGE IV PRN (19:23)
[2024-10-05] MEDS: BUDESONIDE 0.5MG/2ML NEB HHN SCH (20:28)
[2024-10-06] VITALS (91 sets, daily range): BP systolic 107–199; BP diastolic 56–179; PULSE 101–112; RESP 5–41; TEMP 36.6696–39.00312; O2SAT 89–100
[2024-10-06] MEDS: ACETYLCYSTEINE 200MG/ML 20% VIAL 4ML INH SCH (02:56)
[2024-10-06 06:56] LABS: INR 0.9; PROTHROMBIN TIME 10.3 sec (9.6-11.0)
[2024-10-06 06:58] LABS: CHLORIDE 104 mEq/L (98-107); POTASSIUM 3.5 mEq/L (3.5-5.1); SODIUM 141 mEq/L (136-145)
[2024-10-06 07:02] LABS: CALCIUM 9.6 mg/dL (8.7-10.4); CARBON DIOXIDE 27 mEq/L (21-32)
[2024-10-06 07:07] LABS: GLUCOSE 84 mg/dL (70-105); UREA NITROGEN BLOOD 42 mg/dL (9-23)
[2024-10-06 07:08] LABS: BASOPHILS % 0.9 % (0.0-2.0); EOSINOPHILS % 4.9 % (0.0-5.0); HEMATOCRIT. 25.4 % (36.0-48.0); HEMOGLOBIN. 8.4 g/dL (12.0-16.0); LYMPHOCYTES % 23.2 % (20.0-50.0); MEAN CORPUSCULAR HEMOGLOBIN 31.9 pg (28.0-32.0); MEAN CORPUSCULAR HGB CONC 33.1 g/dL (31.0-37.0); MEAN CORPUSCULAR VOLUME 96.3 fL (81.0-99.0); MEAN PLATELET VOLUME 9.4 fl (7.4-10.4); MONOCYTES % 8.9 % (2.0-8.0); NEUTROPHILS % 62.1 % (40.0-76.0); PLATELET 300 x1000/uL (130-400); RED BLOOD CELL COUNT 2.64 mill/uL (4.2-5.4); RED CELL DISTRIBUTION WIDTH 14.7 % (11.6-14.6); WHITE BLOOD COUNT 13.6 x1000/uL (4.5-11.0)
[2024-10-06 07:09] LABS: ALANINE AMINOTRANSFERASE 11 IU/L (10-49); ALBUMIN 4.1 g/dL (3.2-4.8); ASPARTATE AMINOTRANSFERASE 30 IU/L (<34); BILIRUBIN TOTAL < 0.2 mg/dL (0.1-1.0); PHOSPHORUS 5.8 mg/dL (2.5-4.9); PROTEIN TOTAL 7.2 g/dL (6.0-8.3)
[2024-10-06 07:32] LABS: CREATININE 11.3 mg/dL (0.6-1.0)
[2024-10-06] MEDS: INSULIN LISPRO 100 UNITS/ML SUBCUT SCH (07:50)
[2024-10-06] MEDS: INSULIN LISPRO (LOW DOSE) 100 UNITS/ML SUBCUT SCH (08:20)
[2024-10-06 09:04] LABS: BG BASE EXCESS 1.6 mmol/L (-2.0-3.0); BG CARBOXYHEMOGLOBIN 0.3 % (0.5-1.5); BG DEOXYHEMOGLOBIN 2.1 % (0.0-5.0); BG FRACTION INSPIRED OXYGEN 40; BG HCO3 ACT 25.4 mmol/L (21.0-28.0); BG METHEMOGLOBIN 0.2 % (0.5-1.5); BG OXYGEN SATURATION 97.9 % (94.0-98.0); BG OXYHEMOGLOBIN 97.4 % (94.0-98.0); BG PCO2 36.5 mmHg (32.0-45.0); BG PH 7.461 (7.350-7.450); BG PO2 98.6 mmHg (83.0-108.0); BG SAMPLE SITE RIGHT RADIAL; BG TOTAL HEMOGLOBIN 7.7 g/dL (12.0-16.0); BG VENT MODE COOL AEROSOL
[2024-10-06] MEDS: INSULIN GLARGINE 100 UNITS/ML SUBCUT SCH ×2 (09:43→21:10)
[2024-10-06] MEDS: CARVEDILOL 6.25 MG TABLET PO SCH (21:07)
[2024-10-07] VITALS (79 sets, daily range): BP systolic 123–180; BP diastolic 52–110; PULSE 80–108; RESP 17–35; TEMP 36.55848–37.11408; O2SAT 91–100
[2024-10-07 06:12] LABS: HEMATOCRIT 24.2 % (36.0-48.0); MEAN CORPUSCULAR HEMOGLOBIN 31.1 pg (28.0-32.0); MEAN CORPUSCULAR HGB CONC 32.9 g/dL (31.0-37.0); MEAN CORPUSCULAR VOLUME 94.6 fL (81.0-99.0); PLATELET 295 x1000/uL (130-400); RED BLOOD CELL COUNT 2.56 mill/uL (4.2-5.4); RED CELL DISTRIBUTION WIDTH 13.9 % (11.6-14.6); WHITE BLOOD COUNT 9.5 x1000/uL (4.5-11.0)
[2024-10-07 06:21] LABS: CHLORIDE 102 mEq/L (98-107); POTASSIUM 4.3 mEq/L (3.5-5.1); SODIUM 139 mEq/L (136-145)
[2024-10-07 06:22] LABS: CALCIUM 9.1 mg/dL (8.7-10.4); CARBON DIOXIDE 27 mEq/L (21-32)
[2024-10-07 06:27] LABS: GLUCOSE 83 mg/dL (70-105); UREA NITROGEN BLOOD 58 mg/dL (9-23)
[2024-10-07 06:29] LABS: PHOSPHORUS 6.1 mg/dL (2.5-4.9)
[2024-10-07 07:15] LABS: CREATININE 13.1 mg/dL (0.6-1.0)
[2024-10-07] MEDS ORDERED: LEVOFLOXACIN 500MG PREMIX 100 ML IV SCH (13:00)
[2024-10-07] MEDS: CEFEPIME 1GM/50ML 50 ML IV SCH (15:00)
[2024-10-08] VITALS (74 sets, daily range): BP systolic 107–176; BP diastolic 61–96; PULSE 87–104; RESP 0–34; TEMP 36.6696–38.0586; O2SAT 90–100
[2024-10-08 06:51] LABS: CARBON DIOXIDE 25 mEq/L (21-32); CHLORIDE 99 mEq/L (98-107); POTASSIUM 5.3 mEq/L (3.5-5.1); SODIUM 133 mEq/L (136-145)
[2024-10-08 06:52] LABS: CALCIUM 8.5 mg/dL (8.7-10.4)
[2024-10-08 06:57] LABS: GLUCOSE 133 mg/dL (70-105); UREA NITROGEN BLOOD 41 mg/dL (9-23)
[2024-10-08 06:59] LABS: PHOSPHORUS 3.9 mg/dL (2.5-4.9)
[2024-10-08 07:49] LABS: CREATININE 9.9 mg/dL (0.6-1.0)
[2024-10-08] MEDS: ACETAMINOPHEN 325MG TABLET PO PRN (08:12)
[2024-10-08 13:06] LABS: HEMATOCRIT 24.6 % (36.0-48.0); HEMOGLOBIN 8.3 g/dL (12.0-16.0); MEAN CORPUSCULAR HEMOGLOBIN 31.7 pg (28.0-32.0); MEAN CORPUSCULAR HGB CONC 33.5 g/dL (31.0-37.0); MEAN CORPUSCULAR VOLUME 94.5 fL (81.0-99.0); PLATELET 298 x1000/uL (130-400); RED BLOOD CELL COUNT 2.61 mill/uL (4.2-5.4); RED CELL DISTRIBUTION WIDTH 13.9 % (11.6-14.6); WHITE BLOOD COUNT 9.2 x1000/uL (4.5-11.0)
[2024-10-08] MEDS: SODIUM ZIRCONIUM CYCLOSILICATE 10GM/PACKET PO NR (13:21)
[2024-10-08] MEDS ORDERED: EPOETIN ALFA 3000UNITS/ML VIAL SUBCUT SCH (21:00)
== END 2024-10-08 19:47 | disposition home or self-care (01) | DRG 720 ==
LOC: ER 10:14 → EDBEDREQ 13:39 → EDBEDREQSVC 17:20 → CVICU 09-30 13:36
PROVIDERS: ADMIT Internal Medicine; ATTEND Internal Medicine
PROC: 5A1955Z Respiratory Ventilation, Greater than 96 Consecutive Hours (ICD-10-PCS; principal; 2024-09-30)
PROC: 0BH17EZ Insertion of Endotracheal Airway into Trachea, Via Natural or Artificial Opening (ICD-10-PCS; 2024-09-30)
PROC: 5A1D70Z Performance of Urinary Filtration, Intermittent, Less than 6 Hours Per Day (ICD-10-PCS; 2024-09-30)
PROC: 5A1D70Z Performance of Urinary Filtration, Intermittent, Less than 6 Hours Per Day (ICD-10-PCS; 2024-10-03)
PROC: 5A1D70Z Performance of Urinary Filtration, Intermittent, Less than 6 Hours Per Day (ICD-10-PCS; 2024-10-05)
PROC: 5A1D70Z Performance of Urinary Filtration, Intermittent, Less than 6 Hours Per Day (ICD-10-PCS; 2024-10-07)
DX: A41.9 Sepsis, unspecified organism (principal); J96.01 Acute respiratory failure with hypoxia; G93.41 Metabolic encephalopathy; I13.2 Hypertensive heart and chronic kidney disease with heart failure and with stage 5 chronic kidney disease, or end stage renal disease; N17.9 Acute kidney failure, unspecified; E87.1 Hypo-osmolality and hyponatremia; N18.6 End stage renal disease; E10.22 Type 1 diabetes mellitus with diabetic chronic kidney disease; D63.1 Anemia in chronic kidney disease; I50.42 Chronic combined systolic (congestive) and diastolic (congestive) heart failure; E87.6 Hypokalemia; I16.1 Hypertensive emergency; E78.1 Pure hyperglyceridemia; R13.10 Dysphagia, unspecified; D53.9 Nutritional anemia, unspecified; Z79.4 Long term (current) use of insulin; Z88.0 Allergy status to penicillin; Z99.2 Dependence on renal dialysis; Z88.1 Allergy status to other antibiotic agents
CPT/HCPCS: 36415; 36600; 71045; 74018; 80048; 80051; 80053; 80061; 80076; 80202; 82010; 82375; 82550; 82553; 82805; 82962; 83036; 83605; 83735; 83880; 83930; 84100; 84145; 84439; 84443; 84478; 84484; 84703; 85025; 85027; 85044; 85379; 86705; 86709; 86850; 86900; 87070; 87340; 90935; 92610; 93005; 93306; 93970; 94003; 94640; 97162; 99285; J0360; J0692; J0885; J1815; J2060; J2250; J2470; J2704; J2765; J3010; J3370; J3480; J7030; J7050; J7608; J7626